=== PATIENT | female | born 1995 | race Caucasian/White ===

== ENCOUNTER 2017-03-10 11:53 | Emergency (ER) | payer SELFPAY ==
[2017-03-10 12:15] VITALS: BP 121/76
[2017-03-10] MEDS ORDERED: Fluorescein Sodium TOPICAL* 1 MG TEST OPHTHALMIC ONE (12:32)
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
== END 2017-03-10 13:00 | disposition home or self-care (01) ==
LOC: UCCORT 11:53
DX: H00.015 Hordeolum externum left lower eyelid (principal)
CPT/HCPCS: 99212; A9270-GY; G0463

== ENCOUNTER 2017-05-01 16:36 | Emergency (ER) | payer SELFPAY ==
[2017-05-01 17:24] VITALS: BP 110/72
--- NOTE | 2017-05-01 17:50 | UC ---
Ear Complaint HPI - HPI Summary HPI Summary: 22 year old female with ear plugged. Left ear pain for two days and now has intermittently decreased hearing and popping. Patient has taken left over Levaquin 500mg for the last three days. 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 No PCP. [ End ] - History of Current Complaint Chief Complaint: UCEar Stated Complaint: LEFT EAR COMPLAINT Time Seen by Provider: 05/01/17 17:46 Hx Obtained From: Patient Hx Last Menstrual Period: (Nexplanon) Onset/Duration: Gradual Onset Severity Initially: Mild - Allergies/Home Medications Allergies/Adverse Reactions: Allergies Allergy/AdvReac Type Severity Reaction Status Date / Time No Known Allergies Allergy Verified 05/01/17 17:12 Home Medications: Home Medications Etonogestrel [Nexplanon] 68 mg IMPLANT ONCE 05/01/17 [History Confirmed 05/01/17 ] PMH/Surg Hx/FS Hx/Imm Hx Previously Healthy: Yes - Surgical History Surgical History: None Surgery Procedure, Year, and Place: Colonoscopy, 2012, [facility] - Family History Known Family History: Positive: None, Unknown - Social History Occupation: Employed Full-time Lives: With Family Alcohol Use: Rare Substance Use Type: None Smoking Status (MU): Never Smoked Tobacco - Immunization History Most Recent Influenza Vaccination: Not the 2016/2017 Season Review of Systems ENT: Ear Ache All Other Systems Reviewed And Are Negative: Yes Physical Exam Triage Information Reviewed: Yes Appearance: Well-Appearing, No Pain Distress, Well-Nourished Vital Signs: Initial Vital Signs Temp 98.6 F 05/01/17 17:10 Pulse 94 05/01/17 17:10 Resp 16 05/01/17 17:10 BP 110/72 05/01/17 17:10 Pulse Ox 100 05/01/17 17:10 Vital Signs Reviewed: Yes Eye Exam: Normal ENT Exam: Normal ENT: Positive: Other: - Left ear canal with cerumen impaction Dental Exam: Normal Neck exam: Normal Neck: Positive: 1 Respiratory Exam: Normal Cardiovascular Exam: Normal Musculoskeletal Exam: Normal Neurological Exam: Normal Psychological Exam: Normal Skin Exam: Normal Ear Complaint Course/Dx - Course Course Of Treatment: Pt could not tolerate more than minimal irrigation or currette and still with wax and declined further treatment at this time. with the discomfort and mild swelling ear canal will offer drops and return here if any concerns and stop oral abx at this time as she does not need levaquin at this time - Differential Dx/Diagnosis Differential Diagnosis/HQI/PQRI: Cerumen Impaction, Otitis Externa, Otitis Media , Perforated TM, URI Provider Diagnoses: cerumen left ear and otalgia Discharge - Discharge Plan Condition: Good Disposition: HOME Prescriptions: Neomyc/Polym/HC 1% OTIC SUSP* [Cortisporin Otic Susp 1%*] 4 drop LEFT EAR QID # 1 btl Patient Education Materials: Cerumen Impaction (ED), Earache (ED) Referrals: No Primary Care Phys,NOPCP [Primary Care Provider] - 4 Days Additional Instructions: You still have wax in the ear, when your discomfort reduces please return for further evaluation or go to your PCP
== END 2017-05-01 18:34 | disposition home or self-care (01) ==
LOC: UCCORT 16:36
DX: H61.22 Impacted cerumen, left ear (principal); H92.02 Otalgia, left ear
CPT/HCPCS: 99213; G0463

== ENCOUNTER 2017-06-23 09:03 | Emergency (ER) | payer SELFPAY ==
[2017-06-23] MEDS ORDERED: Ondansetron ODT TAB* 4 MG PO ONE (09:19)
[2017-06-23 09:22] VITALS: BP 121/64
--- NOTE | 2017-06-23 09:55 | UC ---
Abdominal Pain Female HPI - HPI Summary HPI Summary: SUDDEN ONSET OF NAUSEA, VOMITING AND SOFT STOOLS LAST NIGHT. LAST EPISODE OF EMESIS ABOUT 5 HOURS AGO HAD SLIGHT DARKER TINGE TO IT. NO GROSS BLOOD. NO FEVER BUT DOES HAVE CHILLS AND FEELS LIGHTHEADED. 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 - History of Current Complaint Chief Complaint: UCGI Stated Complaint: DIZZY/THROWING UP Time Seen by Provider: 06/23/17 09:28 Hx Obtained From: Patient, Family/Box Toe Cementer - Hx Last Menstrual Period: HAS NEXPLAMON. DOES NOT HAVE REG PERIODS Onset/Duration: Sudden Onset, Lasting Hours, Still Present Timing: Constant Severity Initially: Moderate Severity Currently: Moderate Pain Intensity: 5 Pain Scale Used: 0-10 Numeric Location: Diffuse Radiates: No Character: Cramping Aggravating Factor(s): Food Alleviating Factor(s): Nothing Associated Signs and Symptoms: Positive: Nausea, Vomiting Allergies/Adverse Reactions: Allergies Allergy/AdvReac Type Severity Reaction Status Date / Time No Known Allergies Allergy Verified 06/23/17 09:13 PMH/Surg Hx/FS Hx/Imm Hx Respiratory History: Asthma Other GI/ History: IBS - Surgical History Surgical History: None Surgery Procedure, Year, and Place: Colonoscopy, 2011, [facility] - Family History Known Family History: Positive: Hypertension - Social History Alcohol Use: Rare Substance Use Type: None Smoking Status (MU): Never Smoked Tobacco - Immunization History Most Recent Influenza Vaccination: Not the 2016/2017 Season Review of Systems Constitutional: Chills ENT: Negative Respiratory: Negative Cardiovascular: Negative Gastrointestinal: Abdominal Pain, Vomiting, Diarrhea, Nausea Genitourinary: Negative Neurological: Other - LIGHTHEADED All Other Systems Reviewed And Are Negative: Yes Physical Exam Triage Information Reviewed: Yes Appearance: Well-Appearing, No Pain Distress, Well-Nourished Vital Signs: Initial Vital Signs Temp 97.8 F 06/23/17 09:13 Pulse 103 06/23/17 09:13 Resp 20 06/23/17 09:13 BP 121/64 06/23/17 09:13 Pulse Ox 99 06/23/17 09:13 Vital Signs Reviewed: Yes Eyes: Positive: Conjunctiva Clear ENT: Positive: Hearing grossly normal, Pharynx normal, TMs normal Neck: Positive: Supple, Nontender, No Lymphadenopathy Respiratory Exam: Normal Cardiovascular: Positive: Tachycardia Abdomen Description: Positive: Soft, Other: - TTP EPIGASTRIC AREA. Negative: CVA Tenderness (R), CVA Tenderness (L), Distended, Guarding Bowel Sounds: Positive: Present Musculoskeletal: Positive: No Edema Neurological: Positive: Alert Psychological: Positive: Age Appropriate Behavior Skin: Negative: rashes Abd Pain Female Course/Dx - Differential Dx/Diagnosis Provider Diagnoses: ACUTE GASTROENTERITIS Discharge - Discharge Plan Condition: Stable Disposition: HOME Prescriptions: Ondansetron ODT TAB* [Zofran Odt TAB*] 4 mg PO Q6H PRN #20 tab.odt PRN Reason: Nausea/Vomiting Patient Education Materials: Gastroenteritis (ED) Forms: *Work Release Referrals: No Primary Care Phys,NOPCP [Primary Care Provider] - Additional Instructions: ENSURE ADEQUATE HYDRATION. CLEAR LIQUIDS, BLAND DIET. AVOID CAFFEINE, DAIRY, GREASY, SPICY FOODS. ONCE YOU ARE TOLERATING CLEAR LIQUIDS YOU CAN ADVANCE TO SIMPLE, BLAND FOODS. GO TO THE ER WITHOUT FAIL IF YOU DEVELOP WORSENING PAIN, BLOOD IN THE VOMIT OR PER RECTUM, FEVER OR ANY OTHER CONCERNING SYMPTOMS. CALL THE NUMBER BELOW FOR ASSISTANCE IN ESTABLISHING WITH A PCP An additional resource available to assist in finding the appropriate physician for your health care needs is the [facility] ([facility]). You may contact them by calling [phone].
== END 2017-06-23 10:00 | disposition home or self-care (01) ==
LOC: UCCORT 09:03
DX: K52.9 Noninfective gastroenteritis and colitis, unspecified (principal); J45.909 Unspecified asthma, uncomplicated
CPT/HCPCS: 99212; A9270-GY; G0463

== ENCOUNTER 2018-01-18 12:00 | Emergency (ER) | payer MEDICAID, OTHER ==
--- NOTE | 2018-01-18 12:17 | UC ---
Throat Pain/Nasal Bobby HPI - HPI Summary HPI Summary: 22 yo female presents with sore throat, dry cough, b/l ear pain, and sinus pain/ pressure/congestion for the last 3 days. She tells me a co worker was sick with strep last week and she is worried about this. Has not been taking anything OTC. Denies fever, chills, SOB, chest pain. - History of Current Complaint Stated Complaint: ST/CONGESTION Time Seen by Provider: 01/18/18 12:15 Hx Obtained From: Patient Hx Last Menstrual Period: HAS NEXPLAMON. DOES NOT HAVE REG PERIODS Onset/Duration: Gradual Onset Severity: Moderate Pain Intensity: 5 Pain Scale Used: 0-10 Numeric Cough: Nonproductive - Allergies/Home Medications Allergies/Adverse Reactions: Allergies Allergy/AdvReac Type Severity Reaction Status Date / Time No Known Allergies Allergy Verified 01/18/18 12:21 PMH/Surg Hx/FS Hx/Imm Hx - Additional Past Medical History Additional PMH: None Previously Healthy: Yes - Surgical History Surgical History: None Surgery Procedure, Year, and Place: Colonoscopy, 2011, [facility] - Family History Known Family History: Positive: None, Unknown, Hypertension - Social History Occupation: Student Lives: With Family Alcohol Use: Rare Substance Use Type: None Smoking Status (MU): Never Smoked Tobacco - Immunization History Most Recent Influenza Vaccination: Not the 2016/2017 Season Review of Systems Constitutional: Negative Skin: Negative Eyes: Negative ENT: Sore Throat, Ear Ache, Nasal Discharge, Sinus Congestion, Sinus Pain/ Tenderness Respiratory: Cough Cardiovascular: Negative Gastrointestinal: Negative Neurological: Negative Psychological: Negative All Other Systems Reviewed And Are Negative: Yes Physical Exam - Summary Physical Exam Summary: GENERAL: NAD. WDWN. No pain distress. SKIN: No rashes, sores, lesions, or open wounds. HEENT: Head: AT/NC Eyes: EOM intact. Conjunctiva clear without inflammation or discharge. Ears: Hearing grossly normal. RT TM intact with mild erythema and bulging. LT TM occluded by cerumen. Nose: Nasal mucosa mildly swollen and erythematous with yellow/ clear discharge. TTP maxillary and frontal sinus. Throat: Posterior oropharynx with mild erythema. No exudates or tonsillar enlargement. Uvula midline. NECK: Supple. Nontender. No lymphadenopathy. CHEST: CTAB. No r/r/w. No accessory muscle use. Breathing comfortably and in no distress. CV: RRR. Without m/r/g. Pulses intact. Brisk cap refill. NEURO: Alert. CN II-XII grossly intact. PSYCH: Age appropriate behavior. Triage Information Reviewed: Yes Vital Signs: Vital Signs: Temp Pulse Resp BP Pulse Ox 98.8 F 87 16 99 01/18/18 12:15 01/18/18 12:15 01/18/18 12:15 01/18/18 12:15 Throat Pain/Nasal Course/Dx - Course Course Of Treatment: POC strep: negative. Left ear cerumen disimpaction - great relief. TM WNL. Otitis media right. Pharyngitis - Differential Dx/Diagnosis Provider Diagnoses: Cerumen impaction. Right otitis media. Pharyngitis Discharge - Sign-Out/Discharge Documenting (check all that apply): Discharge/Admit/Transfer - Discharge Plan Condition: Stable Disposition: HOME Prescriptions: Amoxicillin PO (*) [Amoxicillin 875 MG (*)] 875 mg PO BID #14 tab Benzonatate CAP* [Tessalon 100 MG CAP*] 100 mg PO TID PRN #21 cap PRN Reason: Cough Patient Education Materials: Pharyngitis (ED), Ear Infection (ED) Forms: *Work Release Referrals: No Primary Care Phys,NOPCP [Primary Care Provider] - Additional Instructions: If you develop a fever, shortness of breath, chest pain, new or worsening symptoms - please call your PCP or go to the ED. - Billing Disposition and Condition Condition: STABLE Disposition: Home
== END 2018-01-18 13:00 | disposition home or self-care (01) ==
LOC: UCCORT 12:00
DX: J02.9 Acute pharyngitis, unspecified (principal); H66.91 Otitis media, unspecified, right ear; H61.22 Impacted cerumen, left ear
CPT/HCPCS: 87651; 99213; G0463

== ENCOUNTER 2019-01-12 13:06 | Emergency (ER) | payer SELFPAY ==
[2019-01-12 14:24] VITALS: BP 106/64
--- NOTE | 2019-01-12 14:51 | UC ---
UC General HPI - HPI Summary HPI Summary: Thursday pm, L ear pain. She then felt hot and dizzy. The past 2 days pt has had some N/Ving. She always has diarrhea from IBS. she denies abdominal pain. - History of Current Complaint Chief Complaint: UCGeneralIllness Stated Complaint: LT EAR PAIN Time Seen by Provider: 01/12/19 14:39 Hx Obtained From: Patient Hx Last Menstrual Period: HAS NEXPLAMON. DOES NOT HAVE REG PERIODS Pain Intensity: 0 Associated Signs & Symptoms: Positive: Headache - Allergy/Home Medications Allergies/Adverse Reactions: Allergies Allergy/AdvReac Type Severity Reaction Status Date / Time No Known Allergies Allergy Verified 01/12/19 14:24 Home Medications: Home Medications Acetaminophen [Tylenol] 3 tab PO ONCE 01/12/19 [History Confirmed 01/12/19] Ibuprofen 600 mg PO ONCE 01/12/19 [History Confirmed 01/12/19] PMH/Surg Hx/FS Hx/Imm Hx Previously Healthy: Yes - Surgical History Surgical History: None Surgery Procedure, Year, and Place: , 2011, [facility] - Family History Known Family History: Positive: None, Unknown, Hypertension - Social History Alcohol Use: None Substance Use Type: None Smoking Status (MU): Never Smoked Tobacco - Immunization History Most Recent Influenza Vaccination: Not the 2016/2017 Season Review of Systems All Other Systems Reviewed And Are Negative: Yes Gastrointestinal: Negative: Abdominal Pain Genitourinary: Negative: Dysuria Physical Exam Triage Information Reviewed: Yes Appearance: Well-Appearing Vital Signs: Initial Vital Signs Temp 97.8 F 01/12/19 14:16 Pulse 91 01/12/19 14:16 Resp 18 01/12/19 14:16 BP 106/64 01/12/19 14:16 Pulse Ox 100 01/12/19 14:16 Vital Signs Reviewed: Yes Eyes: Positive: Conjunctiva Clear ENT: Positive: Pharyngeal erythema, TMs normal - canals clear. no mastoid tenderness or auricular adenopathy.. Negative: Nasal congestion, Nasal drainage Neck: Positive: Supple, Nontender, No Lymphadenopathy Respiratory: Positive: Lungs clear, Normal breath sounds, No respiratory distress Cardiovascular: Positive: RRR, No Murmur Abdomen Description: Positive: Nontender, No Organomegaly, Soft Bowel Sounds: Positive: Present Musculoskeletal: Positive: ROM Intact Neurological: Positive: Alert Psychological: Positive: Age Appropriate Behavior Skin Exam: Normal Skin: Negative: Rashes Diagnostics - Laboratory Lab Results: U/A=SG>1.030., TRACE KETONES AND LEUKOCYTES. CULTURE IS PENDING. URINE HCG=NEGATIVE Course/Dx - Differential Dx - Multi-Symptom Differential Diagnoses: Other - NO TOXIC. NO ACUTE ABDOMEN. NO N/V/D DURING STAY. PT DECLINED ZOFRAN WHILE HERE AND DECLINED A PRESCRIPTION FOR HOME. - Diagnoses Provider Diagnosis: Nausea & vomiting Discharge - Sign-Out/Discharge Documenting (check all that apply): Patient Departure All imaging exams completed and their final reports reviewed: No Studies - Discharge Plan Condition: Stable Disposition: HOME Patient Education Materials: Dehydration (ED), Acute Nausea and Vomiting (ED) Forms: *Work Release Referrals: MAK Smith [Medical Doctor] - 2 Days Additional Instructions: GO TO THE ER FOR ANY WORSENING. - Billing Disposition and Condition Condition: STABLE Disposition: Home
== END 2019-01-12 15:39 | disposition home or self-care (01) ==
LOC: UCCORT 13:06
DX: R11.2 Nausea with vomiting, unspecified (principal)
CPT/HCPCS: 81003; 84702; 87086; 99212; G0463